=== PATIENT | female | born 1925 | race Caucasian/White ===

== ENCOUNTER 2016-04-14 05:55 | Emergency (ER) | payer OTHER, MEDICARE ==
[~2016-04-14] VITALS: Ht 152.4 cm; Wt 61.8 kg
[~2016-04-14 05:55] MED LIST: ADULT LOW DOSE81 M1 PO; ADVAIR HFA120 INHALA IH; ASPIR 8181 M1 PO; Aspirin E.C. PO; CALCIUM600 MG PO; EFFER-K 10 MEQ10 MEQ PO; FUROSEMIDE40 MG PO; GABAPENTIN100 MG PO; HYDROCODON-ACE1 EAC7 PO; HYDROCODON-ACE1 EACH PO; Humibid LA,Mucinex PO; LISINOPRIL-HCT1 EACH PO; LISINOPRIL5 MG PO; LOPRESSOR25 MG PO; LYRICA75 MG PO; MAG-OXIDE400 MG PO; MAGNESIUM-VIT1 EACH PO; MONTELUKAST SODI5 MG PO; MULTIVITAMIN1 EAC1 PO; MULTIVITAMIN1 EAC2 PO; NASONEX17 GM BOTH NARES; PAROXETINE HCL20 MG PO; PAXIL20 MG PO; PHILLIPS' LAXA100 MG PO; POTASSIUM CHLO20 ME1 PO; PRAVACHOL40 MG PO; PRAVASTATIN SOD80 MG PO; PRILOSEC20 MG PO; PROAIR HFA8.5 GM IH; Paxil PO; Protonix PO; Robitussin DM PO; SLOW RELEASE I160 MG PO; Theragran PO; VICODIN 5-3001 EACH PO; VITAMIN D31000 UNI2 PO; Vicodin,Norco 5/325 PO; XANAX0.25 MG PO; XOPENEX0.31 MG/3 IH; ZESTORETIC,P1 TABLE1 PO; ZOFRAN4 MG PO; Zestoretic,Prinzide PO; [UNRECOGNIZED DRUG - OTHER] PO
[2016-04-14 07:11] LABS: EOSINOPHIL (%) 0 % (0-5); HEMATOCRIT 39.8 % (36.0-46.0); IMMATURE GRANULOCYTE (%) 0.2 % (0.0-0.7); IMMATURE GRANULOCYTE COUNT 0.1 K/uL; LYMPHOCYTE COUNT 0.5 K/uL (1.0-2.8); MCH 30.6 PG (29.0-34.0); MCHC 33.9 G/DL (30.0-36.0); MCV 90.2 FL (83-99); MEAN PLAT.VOLUME 12.5 uM^3 (9.5-12.4); MONOCYTE (%) 5.2 % (3-12); MONOCYTE COUNT 0.3 K/uL (0-0.8); NEUTROPHIL COUNT 5.6 K/uL (1.8-6.4); PLATELET COUNT 110 K/uL (156-360); RBC DIS.WIDTH-CV 13.3 % (11.8-14.6); RBC DIS.WIDTH-SD 43.2 % (39-53); RED BLOOD COUNT 4.41 M/uL (3.80-5.20); WHITE BLOOD COUNT 6.4 K/uL (4.1-10.2)
[2016-04-14 07:45] LABS: ALKALINE PHOSPHATASE 77 IU/L (3-129); ANION GAP 10 MEQ/L (2-14); CHLORIDE 105 MEQ/L (99-109); GFR ESTIMATE (CALCULATED) 38 mL/min/; GLUCOSE 101 mg/dL (70-99); POTASSIUM 4.4 MEQ/L (3.7-5.4); SAMPLE HEMOLYSIS CHECK 0; SAMPLE ICTERIC CHECK 0; SAMPLE LIPEMIA CHECK 0; SODIUM 142 MEQ/L (136-147); TOTAL BILIRUBIN 0.6 MG/DL (0.0-1.0); UREA NITROGEN (BUN) 21 mg/dL (9-23)
[2016-04-14 07:46] LABS: TROP-I INTERPRETATION NEGATIVE; TROPONIN-I < 0.01 ng/mL (0.0-0.30)
[2016-04-14 08:28] LABS: ADD MIUA? YES; BILIRUBIN NEGATIVE; BLOOD NEGATIVE; COLOR YELLOW ((YELLOW)); GLUCOSE (STRIP) NEGATIVE; KETONES NEGATIVE; LEUKOCYTES SMALL; NITRITE NEGATIVE; PROTEIN (STRIP) 30; SPECIFIC GRAVITY 1.023 (1.000-1.030)
[2016-04-14 09:01] LABS: EPITHELIAL CELLS RARE; WHITE BLOOD CELLS 0-5 /HPF (0-5)
[2016-04-14 09:02] LABS: BACTERIA RARE; CASTS NONE SEEN /LPF; CRYSTALS NONE SEEN; MUCUS 2+; RED BLOOD CELLS RARE /HPF (0-5); UCUL ADDED? NO
[2016-04-14 11:35] VITALS: BP 111/41
[2016-04-15] MEDS ORDERED: LYRICA25 MG PO (04:34)
[2016-04-15] MEDS ORDERED: K-DUR20 MEQ PO (04:35)
[2016-04-15] MEDS ORDERED: PRILOSEC20 MG PO (04:36)
== END 2016-04-14 11:44 | disposition home or self-care (01) ==
LOC: EME 05:55
PROVIDERS: Emergency Medicine
DX: R19.7 Diarrhea, unspecified (principal); E86.0 Dehydration; Z85.038 Personal history of other malignant neoplasm of large intestine; Z85.72 Personal history of non-Hodgkin lymphomas; I10 Essential (primary) hypertension; E78.5 Hyperlipidemia, unspecified; Z98.890 Other specified postprocedural states; Z79.82 Long term (current) use of aspirin; Z91.09 Other allergy status, other than to drugs and biological substances
CPT/HCPCS: 80053; 81003; 84484; 85025; 87493; 93005; 99281; 99284; J1885; J7030

== ENCOUNTER 2016-04-15 00:56 | Emergency (ER) | payer OTHER, MEDICARE ==
[~2016-04-15] VITALS: Ht 152.4 cm; Wt 66.0 kg
[2016-04-15 01:55] LABS: CHLORIDE 110 mEq/L (99-109); POTASSIUM 4.1 mEq/L (3.7-5.4); SODIUM 136 mEq/L (136-147)
[2016-04-15 01:57] LABS: EOSINOPHIL (%) 0.2 % (0-5); GLUCOSE 98 mg/dL (70-99); IMMATURE GRANULOCYTE (%) 0.2 % (0.0-0.7); IMMATURE GRANULOCYTE COUNT 0.1 K/uL; LYMPHOCYTE COUNT 0.7 K/uL (1.0-2.8); MCH 30.4 PG (29.0-34.0); MCHC 33.4 G/DL (30.0-36.0); MCV 90.9 FL (83-99); MEAN PLAT.VOLUME 12.6 uM^3 (9.5-12.4); MONOCYTE (%) 7.4 % (3-12); MONOCYTE COUNT 0.4 K/uL (0-0.8); NEUTROPHIL (%) 78.7 % (45-76); NEUTROPHIL COUNT 4.4 K/uL (1.8-6.4); PLATELET COUNT 90 K/uL (156-360); RBC DIS.WIDTH-CV 13.3 % (11.8-14.6); RED BLOOD COUNT 3.48 M/uL (3.80-5.20); WHITE BLOOD COUNT 5.6 K/uL (4.1-10.2)
[2016-04-15 01:59] LABS: ANION GAP 6 MEQ/L (2-14)
[2016-04-15 02:01] LABS: GFR ESTIMATE (CALCULATED) 45 mL/min/
[2016-04-15 02:02] LABS: UREA NITROGEN (BUN) 23 mg/dL (9-23)
[2016-04-15 03:02] LABS: ADD MIUA? NO; BILIRUBIN NEGATIVE; BLOOD NEGATIVE; COLOR YELLOW ((YELLOW)); GLUCOSE (STRIP) NEGATIVE; KETONES NEGATIVE; LEUKOCYTES NEGATIVE; NITRITE NEGATIVE; PH, URINE 5.5 (5-8); PROTEIN (STRIP) TRACE; SPECIFIC GRAVITY 1.023 (1.000-1.030); UCUL ADDED? NO; UROBILINOGEN 0.2 MG/DL (0.2-1.0)
[2016-04-15] MEDS ORDERED: LYRICA25 MG PO (04:34)
[2016-04-15] MEDS ORDERED: K-DUR20 MEQ PO (04:35)
[2016-04-15] MEDS ORDERED: PRILOSEC20 MG PO (04:36)
[2016-04-15 04:50] VITALS: BP 94/46
== END 2016-04-15 04:51 | disposition home or self-care (01) ==
LOC: EME → EDBD 00:56 → EME 00:56
PROVIDERS: Emergency Medicine
DX: B34.9 Viral infection, unspecified (principal); R19.7 Diarrhea, unspecified; R53.1 Weakness; G89.29 Other chronic pain; E78.5 Hyperlipidemia, unspecified; I10 Essential (primary) hypertension; K21.9 Gastro-esophageal reflux disease without esophagitis; Z85.72 Personal history of non-Hodgkin lymphomas; Z79.82 Long term (current) use of aspirin
CPT/HCPCS: 71010; 80048; 81003; 83605; 85025; 87040; 87493; 99281; 99285; J7030